=== PATIENT | female | born 1970 | race Caucasian/White ===

== ENCOUNTER 2018-10-29 09:47 | Emergency (ER) | payer OTHER, SELFPAY ==
[2018-10-29 09:48] VITALS: BP 151/53; PULSE 84; RESP 16; TEMP 36.8; O2SAT 99; BMI 36.0
--- NOTE | 2018-10-29 10:16 | ED.VIS.GEN ---
History of Present Illness Chief Complaint: Abd Pain Detail of Chief Complaint: Left upper quadrant Informant: Patient Onset: Month(s), - - Pain started approximate 1 year ago. Patient states worse past 3 days. Context: Sudden Onset Timing: Intermittent Quality: Severe cramping Location: Left upper quadrant Current Severity: Moderate Maximum Severity: Severe Worsened by: Nothing Relieved by: Nothing Associated Symptoms: Nausea Narrative: Patient is a 48-year-old woman who presents with left upper quadrant abdominal pain that started 1 year ago. She states that worse the past 3 days. She states there may be slight improvement if she has a hard passage of gas . She denies change in color, consistency or frequency of stool. She then reported she may have had slight diarrhea yesterday. She is status post cholecystectomy. She denies food intolerance. She denies cough, shortness of breath or difficulty breathing. There is no pleuritic component. There is no history of trauma. She denies dysuria, frequency, urgency or hematuria. She has no history of renal ureterolithiasis. She denies history of PE or DVT and has no risk factors. Past Medical History - Allergies and Home Meds Allergies/Adverse Reactions: Allergies venlafaxine HCl [From Effexor] Allergy (Verified 10/29/18 09:55) Other hallucinations Primary Care Physician: Franck Contreras MD [STAFF PHYSICIAN] - Prior records reviewed: Yes Surgical History: cholecystectomy Lives: Spouse/ Significant Other Smoking Status: Never smoker Alcohol: None Drugs: None - Family History Maternal Family History: Reports: No pertinent history Review of Systems General: Denies: Chills, Fever, Sweats Eyes: Denies: Visual changes - bilaterally, Diplopia ENT: Denies: Bilateral ear pain, Rhinorrhea, Sore throat Cardiovascular: Denies: Chest pain, Palpitations Respiratory: Denies: Dyspnea, Cough, Dyspnea on exertion Gastrointestinal: Reports: Abdominal pain, Nausea. Denies: Vomiting, Diarrhea, Melena, Hematochezia Genitourinary: Denies: Dysuria, Hematuria, Frequency Musculoskeletal: Denies: Back pain, Extremity Pain Skin: Denies: Rash, Wounds Neurological: Denies: Headache, Weakness, Numbness Psych: Denies: Depression Endocrine: Denies: Polyuria, Polydipsia Allergy: Denies: Uticaria Physical Exam Vital Signs/Narrative: Vital Signs Temp Pulse Resp BP Pulse Ox 10/29/18 09:48 98.3 F 84 16 151/53 H 99 General: Well nourished, Well developed, No Acute Distress Head: Normocephalic, Atraumatic Eyes: Perrl, EOMI ENT: Moist mucous membranes, No rhinorrhea Neck: Supple, Nontender Cardiovascular: Regular rate, Regular rhythm, No murmurs Respiratory: No distress, CTA bilaterally, Chest nontender Abdomen: Soft, Nontender, Nondistended, Normal bowel sounds Rectal: Deferred Back: Nontender, Normal Inspection. Negative for: CVA tenderness Extremities: Nontender, No edema, - - There is no asymmetry, swelling, discoloration, leg vein distention, palpable cords or tenderness along the distribution of the deep venous system. Skin: Normal color, No rash Neurological: Alert, Oriented x3, Cranial nerves II-XII grossly intact, Normal Strength, Normal Sensation Psychological: Normal affect, Normal Mood Diagnostic/Tx/Re-eval Laboratory Results 10/29/18 10/29/18 10:35 10:35 WBC 4.7 RBC 5.24 Hgb 15.3 H Hct 46.2 MCV 88.2 MCH 29.2 MCHC 33.1 RDW 13.3 RDW Differential 42.9 Plt Count 283 MPV 9.7 Immature Gran % (Auto) 0.200 Neut % (Auto) 60.0 Lymph % (Auto) 27.7 [place] % (Auto) 8.7 Eos % (Auto) 3.0 Baso % (Auto) 0.4 Absolute Neuts (auto) 2.8 Absolute Lymphs (auto) 1.30 Total Counted Not Reportable Sodium 137 Potassium 3.6 Chloride 104 Carbon Dioxide 29.0 Anion Gap 4 L BUN 12 Creatinine 0.72 Estim Creat Clear Calc 93.93 Est GFR (MDRD) Af Amer 112 Est GFR (MDRD) Non-Af 92 BUN/Creatinine Ratio 16.7 Glucose 91 Calcium 8.9 Total Bilirubin 0.70 AST 24 ALT 28 Alkaline Phosphatase 101 Total Protein 7.6 Albumin 3.5 Globulin 4.1 Albumin/Globulin Ratio 0.9 Lipase 77 - Medical Decision Making With left upper quadrant abdominal pain will obtain CBC, CMP and lipase to evaluate her discomfort. Since she has no abdominal findings on exam x-ray is not of value are indicated. Furthermore CT of the abdomen or pelvis is not indicated at this time. CBC, conference of metabolic panel and lipase were all normal. Since she reports onset a year ago and her workup is normal imaging was not obtained. She was informed the cause of her pain is unknown. She was informed that 50% of patients who presented to the emergency department the etiology of the pain is unknown. ED Disposition - Plan for ED Patient: Disposition: Home or Assisted Living Diagnosis: Colicky left upper quadrant pain Instructions: ED Abdominal Pain Unkn Cause Referrals: Franck Contreras MD [STAFF PHYSICIAN] - Alden Barroso MD [Primary Care Provider] - 3-5 Days if not improving
[2018-10-29 10:43] LABS: Absolute Neutrophil Count 2.8 X10^3/uL (2.0-7.7); Basophil# 0.02 X10^3/uL; Basophil% 0.4 % (0-1); Eosinophil# 0.14 X10^3/uL; Hematocrit 46.2 % (37-47); Hemoglobin 15.3 g/dl (12.0-15.0); Lymphocyte % 27.7 % (19-41); Mean Corp Hgb Conc 33.1 g/gl (32-36); Mean Corpuscular Hgb 29.2 pg (27.0-32.0); Mean Corpuscular Volume 88.2 fL (81-99); Mean Platelet Vol. 9.7 fl (6.2-12.0); Monocyte# 0.41 X10^3/uL; Monocyte% 8.7 % (0-10); Neutrophil # 2.81 X10^3/uL (2.7-7.7); POSITIVE COUNT NO; POSITIVE DIFFERENTIAL NO; POSITIVE MORPHOLOGY NO; Platelet Count 283 K/mm3 (150-450); RBC Distribution Width CV 13.3 % (11.6-14.6); RBC Distribution Width SD 42.9 fl (35.1-43.9); Red Blood Count 5.24 M/mm3 (4.2-5.4); White Blood Count 4.7 K/mm3 (4.4-11.0)
[2018-10-29 10:56] LABS: ALB/GLOB Ratio 0.9 RATIO (0.9-2.4); AST(SGOT) 24 U/L (15-37); Alanine Aminotransfer ALT/SGPT 28 U/L (13-56); Albumin, Serum 3.5 g/dL (3.2-5.0); Alkaline Phosphatase 101 U/L (45-117); Anion Gap 4 (5-15); BUN 12 mg/dL (7-18); BUN/Creat Ratio 16.7 RATIO (10-20); Calcium,Total 8.9 mg/dL (8.5-10.1); Chloride 104 mmol/L (98-107); Creatinine, Serum 0.72 mg/dL (0.55-1.02); EST Glomerular Filtration Rate 92 mL/min (>60); Est Glom Filt Rate - Afr Amer 112 mL/min (>60); Estimated Creatinine Clearance 93.93 ml/min; Globulin 4.1 g/dL (2.2-4.2); Glucose 91 mg/dL (74-106); Lipase 77 U/L (73-393); Potassium 3.6 mmol/L (3.5-5.1); Protein, Total 7.6 g/dL (6.4-8.2); Sodium Level 137 mmol/L (136-145)
[2018-10-29 11:42] VITALS: BP 134/112; PULSE 80; RESP 18; O2SAT 98
== END 2018-10-29 11:55 | disposition home or self-care (01) ==
PROVIDERS: Emergency Provider Emergency Medicine; Family Provider Internal Medicine; PCP Internal Medicine
DX: R10.84 Generalized abdominal pain (principal); R10.12 Left upper quadrant pain; Z90.49 Acquired absence of other specified parts of digestive tract
CPT/HCPCS: 80053; 83690; 85025; 99285; A4216

== ENCOUNTER 2019-06-29 21:30 | Emergency (ER) | payer OTHER, SELFPAY ==
[2019-06-29 21:31] VITALS: BP 178/103; PULSE 152; RESP 20; TEMP 36.7; O2SAT 98; BMI 39.9
--- NOTE | 2019-06-29 21:57 | EKG12_ITS ---
Test Reason : PALPS Blood Pressure : / mmHG Vent. Rate : 113 BPM Atrial Rate : 113 BPM P-R Int : 190 ms QRS Dur : 076 ms QT Int : 328 ms P-R-T Axes : 060 043 055 degrees QTc Int : 449 ms Sinus tachycardia Possible Left atrial enlargement Borderline ECG Confirmed by SCOTT SALEEM, LIZANDRO ([id number]), rewrite editor BREANN PHILLIPS ([id number]) on 07/02/2019 11:38:42 AM Referred By: BB Confirmed By:LIZANDRO CHAVEZ MD
--- NOTE | 2019-06-29 21:59 | ED.VIS.CHEST ---
History of Present Illness Chief Complaint: Palpitations Informant: Patient Onset: Hours - 1-2 Activity at onset: Rest - after I got home from work Timing: Continuous Quality: - - skipping/racing palpitations. no chest discomfort. Current Severity: Gone Maximum Severity: Moderate Worsened By: Nothing Relieved By: Nothing Associated Symptoms: Palpitations. Negative for: Nausea, Vomiting, Diaphoresis, Dyspnea, Cough, Fever, Lightheadedness Narrative: Patient states she had a very stressful day at work today. She is not suicidal, but has been having a little anxiety. She drank 2 cups of coffee this morning which is typical for her. No illicit substances. Non-smoker. No near syncope or syncope. No history of this in the past. No cardiac history. Prior Similar Symptoms: No - Past Medical History (1) HTN (hypertension) Status: Chronic Past Medical History - Allergies and Home Meds Allergies/Adverse Reactions: Allergies venlafaxine HCl [From Effexor] Allergy (Verified 06/29/19 21:35) Other hallucinations Primary Care Physician: Kevin Bland MD [STAFF PHYSICIAN] - As soon as possible (call for appt) Surgical History: cholecystectomy Lives: Spouse/ Significant Other Smoking Status: Never smoker Drugs: None - Family History Maternal Family History: Reports: No pertinent history Review of Systems General: Denies: Chills, Fever, Sweats Eyes: Denies: Visual changes - bilaterally, Diplopia ENT: Denies: Rhinorrhea, Sore throat Cardiovascular: Reports: Palpitations, Heart racing. Denies: Chest pain Respiratory: Denies: Dyspnea, Cough, Dyspnea on exertion Gastrointestinal: Denies: Abdominal pain, Nausea, Vomiting, Diarrhea, Melena, Hematochezia Genitourinary: Denies: Dysuria, Hematuria, Frequency Musculoskeletal: Denies: Back pain, Extremity Pain Skin: Denies: Rash, Wounds Neurological: Denies: Headache, Weakness, Numbness Physical Exam Vital Signs/Narrative: Vital Signs Temp Pulse Resp BP Pulse Ox 06/29/19 21:31 98.1 F 152 H 20 H 178/103 H 98 Inital Vital Signs reviewed: Yes General: Well nourished, Well developed, No Acute Distress Head: Normocephalic, Atraumatic Eyes: Perrl, EOMI ENT: Moist mucous membranes, No rhinorrhea Neck: Supple, Nontender, No JVD Cardiovascular: Regular rate, Regular rhythm, No murmurs, Tachycardia - mild Respiratory: No distress, CTA bilaterally, Chest nontender Abdomen: Soft, Nontender, Nondistended, Normal bowel sounds Back: Nontender, Normal Inspection Extremities: Nontender, No edema. Negative for: Calf Tenderness Skin: Normal color, No rash, No Trauma Neurological: Alert, Oriented x3, Cranial nerves II-XII grossly intact, Normal Strength, Normal Sensation Psychological: Normal affect, Normal Mood Diagnostic/Tx/Re-eval Laboratory Results 06/29/19 06/29/19 06/29/19 21:35 21:35 21:35 WBC 9.5 RBC 5.41 H Hgb 15.9 H Hct 47.0 MCV 86.9 MCH 29.4 MCHC 33.8 RDW Std Deviation 40.4 RDW Coeff of Michelle 12.9 Plt Count 351 MPV 10.1 Immature Gran % (Auto) 0.200 Neut % (Auto) 52.0 Lymph % (Auto) 36.5 [place] % (Auto) 9.4 Eos % (Auto) 1.5 Baso % (Auto) 0.4 Absolute Neuts (auto) 4.9 Absolute Lymphs (auto) 3.46 Nucleated RBC % 0 D-Dimer Quant (PE/DVT) 0.45 Sodium 140 Potassium 3.4 L Chloride 105 Carbon Dioxide 27.0 Anion Gap 8 BUN 18 Creatinine 0.91 Estim Creat Clear Calc 73.52 Est GFR (MDRD) Af Amer 84 Est GFR (MDRD) Non-Af 70 BUN/Creatinine Ratio 19.7 Glucose 116 H Calcium 9.7 Troponin I < 0.015 - Rhythm Strip Rhythm Strip: Sinus Tach Rate: 115 Ectopy: None - EKG Initial EKG Interpretation: No Acute Injury Pattern, Sinus Tachycardia Treatment: Beta Kyaw PO - Medical Decision Making Upon arrival, nurses put patient on the monitor and she appeared to be in A. fib with RVR. An EKG was ordered prior to my seeing her, while the tech was performing EKG she appeared to convert over to sinus rhythm and her rate slowed down considerably to around 115. She felt better as she continues to at this time. Will obtain blood work and watch her, discussed with cardiology. Blood work shows hypokalemia; the potassium is just barely low at 3.4, however it is hemolyzed, indicating that it is actually lower than this. She was given some potassium. She was watched for almost 2 hours, she never went back into atrial fibrillation and remained asymptomatic. Discussed with cardiology Dr. Bland, he agrees with replacing the potassium and placing her on low-dose beta-kyaw and having her follow-up as an outpatient. Will prescribe metoprolol 25 mg twice daily and give her an initial dose here. She is comfortable with this plan. ED Disposition - Plan for ED Patient: Disposition: Home or Assisted Living Diagnosis: Transient atrial fibrillation, Hypokalemia Instructions: Atrial Fibrillation, Hypokalemia Prescriptions: Metoprolol Tartrate 25 mg PO BID #60 tab Transmission Status: Pending to [facility]/pharmacy #[id number] Referrals: Kevin Bland MD [STAFF PHYSICIAN] - As soon as possible (call for appt)
[2019-06-29 22:07] LABS: Absolute Lymphocyte Count 3.46 X10^3/uL (0.83-4.51); Absolute Neutrophil Count 4.9 X10^3/uL (2.0-7.7); Basophil# 0.04 X10^3/uL; Basophil% 0.4 % (0-1); Eosinophil# 0.14 X10^3/uL; Eosinophils% 1.5 % (0-5); Hemoglobin 15.9 g/dL (12.0-15.0); Lymphocyte # 3.46 X10^3/ul (4.0); Lymphocyte % 36.5 % (19-41); Mean Corp Hgb Conc 33.8 g/dL (32-36); Mean Corpuscular Hgb 29.4 pg (27.0-32.0); Mean Corpuscular Volume 86.9 fL (81-99); Mean Platelet Vol. 10.1 fl (6.2-12.0); Monocyte# 0.89 X10^3/uL; Monocyte% 9.4 % (0-10); NRBC Flagged by Analyzer 0 % (0-5); Neutrophil # 4.93 X10^3/uL (2.7-7.7); Platelet Count 351 K/mm3 (150-450); RBC Distribution Width CV 12.9 % (11.6-14.6); RBC Distribution Width SD 40.4 fl (35.1-43.9); Red Blood Count 5.41 M/mm3 (4.2-5.4); White Blood Count 9.5 K/mm3 (4.4-11.0)
[2019-06-29 22:21] LABS: Anion Gap 8 (5-15); BUN 18 mg/dL (7-18); BUN/Creat Ratio 19.7 RATIO (10-20); Calcium,Total 9.7 mg/dL (8.5-10.1); Chloride 105 mmol/L (98-107); Creatinine, Serum 0.91 mg/dL (0.55-1.02); EST Glomerular Filtration Rate 70 mL/min (>60); Est Glom Filt Rate - Afr Amer 84 mL/min (>60); Estimated Creatinine Clearance 73.52 ml/min; Glucose 116 mg/dL (74-106); Potassium 3.4 mmol/L (3.5-5.1); Sodium Level 140 mmol/L (136-145)
[2019-06-29 22:52] LABS: D-Dimer Quantitative (DVT/PE) 0.45 FEU/ug/m (0.27-0.49)
[2019-06-29 23:13] VITALS: BP 166/86; PULSE 135; RESP 20; O2SAT 99
[2019-06-29] MEDS: Metoprolol Tartrate 25 MG Tablet PO (23:13)
[2019-06-29 23:32] VITALS: PULSE 120; RESP 18
== END 2019-06-29 23:34 | disposition home or self-care (01) ==
PROVIDERS: Emergency Provider Emergency Medicine; Family Provider Internal Medicine; PCP Internal Medicine
DX: I48.91 Unspecified atrial fibrillation (principal); E87.6 Hypokalemia; F41.9 Anxiety disorder, unspecified; I10 Essential (primary) hypertension; Z90.49 Acquired absence of other specified parts of digestive tract
CPT/HCPCS: 80048; 84484; 85025; 85379; 93005; 99285

== ENCOUNTER 2019-07-06 21:24 | Emergency (ER) | payer OTHER, SELFPAY ==
[2019-07-06 21:25] VITALS: BP 149/85; PULSE 93; RESP 19; TEMP 36.6; O2SAT 99; BMI 40.4
--- NOTE | 2019-07-06 21:41 | EKG12_ITS ---
Test Reason : HTN Blood Pressure : / mmHG Vent. Rate : 087 BPM Atrial Rate : 087 BPM P-R Int : 210 ms QRS Dur : 086 ms QT Int : 404 ms P-R-T Axes : 060 037 054 degrees QTc Int : 486 ms Sinus rhythm with 1st degree A-V block Prolonged QT Abnormal ECG Confirmed by SCOTT SALEEM, LIZANDRO ([id number]), slot editor JACINTA GORDON ([id number]) on 07/09/2019 10:04:44 AM Referred By: SHAWN Confirmed By:LIZANDRO CHAVEZ MD
--- NOTE | 2019-07-06 22:09 | RAD_ITS ---
STUDY: X-RAY CHEST REASON FOR EXAM: Female, 49 years old. Patient doesn't feel well TECHNIQUE: PA and lateral views of the chest. COMPARISON: None. FINDINGS: threat monitoring analyst leads are present. The lungs are clear and expanded. There is no demonstrated pleural abnormality. Normal size heart. Normal mediastinum and roberta. Normal visualized pulmonary arteries. Normal visualized aortic arch and descending thoracic aorta. There are diffuse degenerative changes of the visualized thoracic spine. Normal visualized ribs, clavicles, and shoulders. There is no demonstrated abnormality of the visualized soft tissue structures of the upper abdomen. RAD/Chest PA and Lateral IMPRESSION: Degenerative changes of the thoracic spine. No acute cardiopulmonary disease process is seen. Electronically Signed: Negro Valle MD at 22:39 EST , Service support ,
[2019-07-06 22:20] LABS: Mucous, Urine 0 SEEN /hpf (<or=2+); Red Blood Cells-Urine 0 SEEN /hpf (0-5)
[2019-07-06 22:22] LABS: Color, Urine Yellow (Yellow); Glucose, Dipstick Normal (Normal); Ketone-Dipstick Negative (Negative); Leukocyte Esterase-Dipstick 25 /ul (Negative); Nitrite-Dipstick Negative (Negative); Occult Blood-Urine Negative /ul (Negative); Protein-Dipstick Negative (Negative); Urine Bilirubin Dipstick Negative (Negative); Urine Clarity Clear (Clear); Urine Urobilinogen Normal (Normal); Urine pH 6.5 (5.0 - 8.0)
[2019-07-06 22:24] LABS: Anion Gap 7 (5-15); BUN 17 mg/dL (7-18); BUN/Creat Ratio 22.6 RATIO (10-20); Calcium,Total 9.2 mg/dL (8.5-10.1); Chloride 103 mmol/L (98-107); Creatinine, Serum 0.75 mg/dL (0.55-1.02); EST Glomerular Filtration Rate 87 mL/min (>60); Est Glom Filt Rate - Afr Amer 106 mL/min (>60); Estimated Creatinine Clearance 89.21 ml/min; Glucose 103 mg/dL (74-106); Potassium 3.1 mmol/L (3.5-5.1); Sodium Level 140 mmol/L (136-145)
--- NOTE | 2019-07-06 22:24 | ED.VISSUMM ---
- ER Visit Summary Date of Service: 07/06/19 Chief Complaint: Lightheadedness History of Present Illness: The patient is a 49 F who presents with lightheadedness that began today while she was driving home from work. Patient states she feels lightheaded and dizzy. Patient also states she was having some palpitations. Patient states these palpitations were different from the paroxysmal atrial fibrillation that she had last week. Patient denies any chest pain. Patient admits to some diarrhea but denies any nausea or vomiting. Patient denies any shortness of breath or cough. Patient denies any fevers or chills. Physical Examination: Vital signs are stable. Patient is afebrile. Patient is in no acute distress. Oral mucosa is pink and moist. Neck is supple. Trachea is midline. There is no JVD. Heart was regular rate and rhythm. Lungs are clear and equal bilaterally. Abdomen is soft. Bowel sounds are normal. There is no tenderness. Cranial nerves II through XII are intact. There are no focal motor or sensory deficits noted. Test Results: EKG showed a normal sinus rhythm with a first-degree AV block with a rate of 87. There are no acute ST or T wave changes. QTc was slightly prolonged at 486. CBC was within normal limits. Basic metabolic profile showed a mild hypokalemia of 3.1. Urinalysis does not show any evidence of urinary tract infection. Troponin was normal. PA and lateral chest x-ray was obtained. There is no acute process noted. This was interpreted by the radiologist and myself. Emergency Department Course and Treatment: Orthostatic vital signs were obtained and were negative. Patient does not want to take any oral potassium. Patient was instructed to follow-up with her primary care physician in 2 to 3 days for further evaluation. Patient understood and was agreeable with the plan. All questions were answered. Disposition: Discharge home Impression: Near syncope This note was generated with [employer] dictation software. It may contain incorrect words, spelling, and punctuation that were not noted in review of the chart prior to signing ED Disposition - Plan for ED Patient: Disposition: Home or Assisted Living Diagnosis: Near syncope Instructions: NEAR SYNCOPE, Unknown Referrals: Alden Barroso MD [Primary Care Provider] - 2 Days
[2019-07-06 22:30] VITALS: BP 167/70; PULSE 97
[2019-07-06 22:33] LABS: Bacteria RARE /hpf (None Seen); Squamous Epithelial Cells - UA 0-5 SEEN /hpf (5-10); White Blood Cells 0-5 SEEN /hpf (0-5)
[2019-07-06 22:37] LABS: Absolute Lymphocyte Count 2.58 X10^3/uL (0.83-4.51); Absolute Neutrophil Count 5.7 X10^3/uL (2.0-7.7); Basophil# 0.03 X10^3/uL; Basophil% 0.3 % (0-1); Eosinophils% 2.2 % (0-5); Hematocrit 43.3 % (37-47); Hemoglobin 14.8 g/dL (12.0-15.0); Lymphocyte # 2.58 X10^3/ul (4.0); Mean Corp Hgb Conc 34.2 g/dL (32-36); Mean Corpuscular Hgb 29.6 pg (27.0-32.0); Mean Corpuscular Volume 86.6 fL (81-99); Mean Platelet Vol. 10.4 fl (6.2-12.0); Monocyte# 0.68 X10^3/uL; Monocyte% 7.4 % (0-10); NRBC Flagged by Analyzer 0 % (0-5); Neutrophil % 61.8 % (47-70); Platelet Count 332 K/mm3 (150-450); RBC Distribution Width CV 12.6 % (11.6-14.6); RBC Distribution Width SD 39.2 fl (35.1-43.9); White Blood Count 9.2 K/mm3 (4.4-11.0)
[2019-07-06 22:38] VITALS: BP 152/84; PULSE 102
[2019-07-06 22:40] VITALS: BP 154/92; PULSE 109
[2019-07-06 23:21] VITALS: BP 156/74; PULSE 82; RESP 16; O2SAT 97
== END 2019-07-06 23:22 | disposition home or self-care (01) ==
PROVIDERS: Emergency Provider Emergency Medicine; Family Provider Internal Medicine; PCP Internal Medicine
DX: R55 Syncope and collapse (principal); I48.0 Paroxysmal atrial fibrillation; E66.9 Obesity, unspecified; R19.7 Diarrhea, unspecified; R53.1 Weakness
CPT/HCPCS: 36415; 71046; 80048; 81001; 84484; 85025; 93005; 96360; 99285; A4216

== ENCOUNTER 2023-11-22 15:25 | Emergency (ER) | payer OTHER, SELFPAY ==
[2023-11-22] VITALS (7 sets, daily range): BP systolic 141–167; BP diastolic 70–95; PULSE 78–87; RESP 16–18; TEMP 36.4–37.1; O2SAT 98–100; BMI 46.3
--- NOTE | 2023-11-22 16:12 | ED.VIS.GI ---
HPI HPI - GI History of Present Illness Chief Complaint: Abd Pain Informant: patient Abdominal Pain/Flank Pain Onset: Yesterday Context: Sudden Onset Timing: Intermittent Quality: Stabbing Location: Epigastric and LUQ Worsened by: Food Relieved by: Nothing Nausea/Vomiting/Emesis GI Symptom: Negative for Nausea or Vomiting Diarrhea/Melena/Hematochezia GI Symptom: Positive for Diarrhea; Negative for Melena or Hematochezia Onset: Weeks (3) Stool Quality: Positive for Loose and Watery Associated Symptoms Associated Symptoms: Negative for Dysuria, Frequency or Hematuria Narrative Narrative: Patient presents with abdominal pain that has been getting worse since yesterday. Patient states she has had diarrhea for the past 3 weeks. Patient describes it as loose. Patient denies any blood in her stools. Patient denies any melena. Patient denies any nausea or vomiting. Patient states her abdominal pain is intermittent. Patient describes it as stabbing. Patient states it is over the left upper quadrant and epigastric area. Patient states it is worse when she eats. Patient states nothing makes it better. PFSH PFS Medical History Chronic neck and back pain HTN (hypertension) Home Medications potassium chloride 10 mEq capsule,extended release 10 meq PO DAILY 10/29/18 [History Last Taken Unknown] triamterene 37.5 mg-hydrochlorothiazide 25 mg tablet 1 tab PO DAILY 10/29/18 [History Last Taken Unknown] atenolol 25 mg tablet 25 mg PO 06/09/20 [History Last Taken Unknown] cholecalciferol (vitamin D3) 10 mcg (400 unit) capsule 10 mcg PO DAILY 06/09/20 [History Last Taken Unknown] duloxetine 30 mg capsule,delayed release mg PO 06/09/20 [History Last Taken Unknown] levonorgestrel 21 mcg/24 hours (8 yrs) 52 mg intrauterine device (Mirena) 1 device intrauterine ONCE 06/09/20 [History Last Taken Unknown] multivitamin 1 cap PO DAILY 06/09/20 [History Last Taken Unknown] Allergy/AdvReac Type Severity Reaction Status Date / Time venlafaxine HCl Allergy Other Verified 11/22/23 15:27 [From Effexor] Family History Other Diabetes Heart disease Kidney disease Surgical History History of cholecystectomy History of tonsillectomy Social History Smoking Status: Never smoker alcohol intake: never ROS ROS ED Constitutional Constitutional ED: Denies chills or fever(s) Eyes Eyes: Denies blurry vision or change in vision ENT ENT ED: Reports rhinorrhea; Denies sore throat Cardiovascular Cardiovascular: Denies chest pain or palpitations Respiratory/Chest Respiratory/Chest: Reports cough; Denies dyspnea Gastrointestinal Gastrointestinal: Reports abdominal pain and diarrhea; Denies nausea or vomiting Genitourinary Genitourinary ED: Denies dysuria or hematuria Musculoskeletal Musculoskeletal: Reports back pain; Denies neck pain Integumentary Denies abscess or rash Neurologic Neurologic: Denies headache(s) or weakness Allergic/Immunologic Allergic/Immunologic ED: Denies mouth swelling or urticaria EXAM Physical Exam Const Vital Signs: 11/22/23 15:26 11/22/23 15:27 11/22/23 16:27 Temperature 97.6 F L 97.6 F L 97.6 F L Temperature Source Temporal Temporal Temporal Pulse Rate 83 83 83 Respiratory Rate 18 18 16 Blood Pressure 149/95 H 149/95 H 149/95 H Blood Pressure Mean 113 113 113 Pulse Ox 100 100 98 Oxygen Delivery Method Room Air Room Air Room Air 11/22/23 17:24 11/22/23 18:00 11/22/23 19:00 Temperature 98.7 F 98.7 F 98.4 F Temperature Source Oral Oral Temporal Pulse Rate 78 87 87 Respiratory Rate 16 18 16 Blood Pressure 167/78 H 146/73 H 159/70 H Blood Pressure Mean 107 97 99 Pulse Ox 99 98 98 Oxygen Delivery Method Room Air Room Air Room Air Positive well nourished, well developed and obese General Appearance ED: well developed and NAD; Negative for pallor Nutritional Appearance: obese HEENT Reports moist mucous membranes normocephalic Neck supple and no JVD Resp normal respiratory effort and clear to auscultation bilaterally Cardio regular rate and regular rhythm GI non-distended Palpation: soft and tender epigastric and LUQ; Negative for guarding or rebound tenderness present Neuro CN's II-XII intact bilaterally, moves all extremities and no sensory deficits noted Sensorium / Orientation: alert Motor Exam: strength 5/5 throughout Psych mental status grossly normal and thought process normal Skin no wounds General Skin Exam: Negative for jaundice or pallor MDM MDM MDM Narrative Medical decision making narrative: Differential diagnosis includes gastroenteritis, bowel obstruction, perforation, pancreatitis, electrolyte abnormality, and dehydration. CBC will be obtained to assess for leukocytosis and anemia. Comprehensive metabolic profile will be obtained to assess for hepatic function, renal function, and electrolyte abnormality. Lipase will be obtained to assess for pancreatitis. Urinalysis will be obtained to assess for urinary tract infection. Stool specimen will be obtained for C. difficile, enteric pathogens, and fecal leukocytes. Serum hCG will be obtained to assess for Lab Data Attestation: I reviewed the patient's lab results. Lab results narrative: CBC was reviewed and was within normal limits. Comprehensive metabolic profile was reviewed and was essentially within normal limits. Lipase was reviewed and was normal at 33. Urinalysis was reviewed. Leukocyte esterase was 25 with 1+ bacteria. There is 0-5 white blood cells noted. Labs: Laboratory Results - last 24 hr 11/22/23 16:40 WBC 7.9 RBC 4.96 Hgb 14.3 Hct 43.7 MCV 88.1 MCH 28.8 MCHC 32.7 RDW Std Deviation 41.9 RDW Coeff of Michelle 12.9 Plt Count 324 MPV 9.8 Immature Gran % (Auto) 0.300 Neut % (Auto) 57.0 Lymph % (Auto) 30.3 [place] % (Auto) 8.9 Eos % (Auto) 2.9 Baso % (Auto) 0.6 Absolute Neuts (auto) 4.5 Absolute Lymphs (auto) 2.39 Nucleated RBC % 0 Sodium 139 Potassium 3.7 Chloride 108 H Carbon Dioxide 28.0 Anion Gap 3 L BUN 15 Creatinine 0.96 Estim Creat Clear Calc 94.95 Est GFR (MDRD) Af Amer 78 Est GFR (MDRD) Non-Af 65 BUN/Creatinine Ratio 15.6 Glucose 90 Calcium 9.4 Total Bilirubin 0.50 AST 25 ALT 32 Alkaline Phosphatase 69 Total Protein 8.0 Albumin 3.7 Globulin 4.3 H Albumin/Globulin Ratio 0.9 Lipase 33 Serum , Qual NEGATIVE Urine Color Yellow Urine Clarity Clear Urine pH 6.0 Ur Specific [place] 1.015 Urine Protein Negative Urine Glucose (UA) Normal Urine Ketones Negative Urine Occult Blood 50 H Urine Nitrite Negative Urine Bilirubin Negative Urine Urobilinogen Normal Ur Leukocyte Esterase 25 H Urine RBC 0-5 SEEN Urine WBC 0-5 SEEN Ur Squamous Epith Cells 0-5 SEEN Urine Bacteria 1+ Urine Mucus 0 SEEN Radiography Diagnostic Testing: Clinical Impression(s) from Imaging Studies Abdomen/Pelvis CT 11/22/23 16:30 IMPRESSION: Mild nonspecific ileus in the left upper to mid abdomen.. No evidence for small bowel obstruction or other acute abnormality Findings as above Electronically Signed: Ha Lemons MD at 18:38 EDT , CT scan of the abdomen pelvis was obtained. There is a mild nonspecific ileus in the left upper abdomen. There is no evidence of bowel obstruction. There is no free air or free fluid noted. There is no other acute abnormality noted. This was interpreted by the radiologist and was also independently reviewed by myself. Treatment and Re-Evaluation :: Patient was given IV fluids. Patient was unable to produce stool specimen here. Patient was advised of her findings. Patient was instructed to start with a bland diet and advance as tolerated. Patient was instructed to follow-up with her primary care physician in 5 to 7 days. Patient understood and was agreeable with the plan. All questions were answered. Discharge Plan Triage Chief Complaint: Abd Pain ED Provider: Raj Schroeder Dx/Rx/DC Orders Clinical Impression: Diarrhea, Abdominal pain Instructions: ED Abdominal Pain Unkn Cause Fem, ED Diarrhea, Unknown Cause Prescriptions: No Action atenolol 25 mg tablet 25 mg PO Patient Comments: TAKE 1/2 TABLET BY MOUTH TWICE A DAY duloxetine 30 mg capsule,delayed release(DR/EC) PO Patient Comments: TAKE 1 CAPSULE BY MOUTH EVERY DAY multivitamin capsule 1 cap PO DAILY cholecalciferol (vitamin D3) 10 mcg (400 unit) capsule 10 mcg PO DAILY levonorgestrel 20 mcg/24 hours (5 yrs) 52 mg intrauterine device 20 mcg/24 hours (5 yrs) 52 mg intrauterine device 1 device intrauterine ONCE Rx Instructions: as a single dose potassium chloride 10 MEQ capsule, extended release 10 meq PO DAILY triamterene-hydrochlorothiazid 1 EACH tablet 1 tab PO DAILY Patient Comments: TAKE 1 TABLET BY MOUTH EVERY DAY Primary Care Provider: Ellyn Christina NP Referrals: Alden Barroso MD [Med Staff - [facility]] - 5-7 Days Ellyn Christina NP, [employer] [Primary Care Provider] - 5-7 Days Disposition Disposition: Home, Self Care
[2023-11-22] MEDS: 0.9% Normal Saline (1000mL) 1,000 ML 1000 ML IV (16:30)
--- NOTE | 2023-11-22 16:30 | CT_ITS ---
STUDY: CT ABDOMEN AND PELVIS WITH CONTRAST REASON FOR EXAM: Female, 53 years old. Abdominal pain -- IV PO Contrast RADIATION DOSAGE (If Supplied By Facility): CTDIvol = ( 18.57 ) mGy, DLP = ( 1388.99 ) mGycm TECHNIQUE: Transaxial images were obtained from the dome of the diaphragm to the symphysis pubis without oral contrast. Oral and amp; IV Gastrografin and amp; 100mL Isovue-370 was administered. Sagittal and coronal images were reconstructed. Individualized dose optimization techniques were used for this CT. COMPARISON: None. FINDINGS: The visualized lung bases are unremarkable. The visualized portions of the heart are within normal limits. Nonspecific fatty infiltrated liver without mass or bile duct dilatation. Gallbladder not visualized consistent with prior cholecystectomy. Normal spleen. Normal pancreas. Normal bilateral adrenal glands. Normal right kidney. Normal left kidney. Normal visualized stomach. There are a few mildly distended proximal small bowel loops without transition point most consistent with nonspecific focal ileus. Normal colon. No evidence for acute appendicitis Normal abdominal aorta. Normal inferior vena cava. Normal retroperitoneum. Normal urinary bladder. Uterus is slightly deviated towards the right. There is an IUD noted in satisfactory position . Tiny right ovarian cyst is noted Normal abdominal wall. Lumbar spine demonstrates mild spondylosis. CT/Abdomen/Pelvis WITH Contrast IMPRESSION: Mild nonspecific ileus in the left upper to mid abdomen.. No evidence for small bowel obstruction or other acute abnormality Findings as above Electronically Signed: Ha Lemons MD at 18:38 EDT ,
[2023-11-22 16:55] LABS: Absolute Lymphocyte Count 2.39 X10^3/uL (0.83-4.51); Absolute Neutrophil Count 4.5 X10^3/uL (2.0-7.7); Basophil# 0.05 X10^3/uL; Basophil% 0.6 % (0-1); Color, Urine Yellow (Yellow); Eosinophil# 0.23 X10^3/uL; Eosinophils% 2.9 % (0-5); Glucose, Dipstick Normal (Normal); Hematocrit 43.7 % (37-47); Hemoglobin 14.3 g/dL (12.0-15.0); Ketone-Dipstick Negative (Negative); Leukocyte Esterase-Dipstick 25 /ul (Negative); Lymphocyte # 2.39 X10^3/ul (0.83-4.51); Lymphocyte % 30.3 % (19-41); Mean Corp Hgb Conc 32.7 g/dL (32-36); Mean Corpuscular Hgb 28.8 pg (27.0-32.0); Mean Corpuscular Volume 88.1 fL (81-99); Mean Platelet Vol. 9.8 fl (6.2-12.0); Monocyte% 8.9 % (0-10); Mucous, Urine 0 SEEN /hpf (<or=2+); NRBC Flagged by Analyzer 0 % (0-5); Nitrite-Dipstick Negative (Negative); Occult Blood-Urine 50 /ul (Negative); Platelet Count 324 K/mm3 (150-450); Protein-Dipstick Negative (Negative); RBC Distribution Width CV 12.9 % (11.6-14.6); RBC Distribution Width SD 41.9 fl (35.1-43.9); Red Blood Count 4.96 M/mm3 (4.2-5.4); Specific Gravity, Urine 1.015 (1.002-1.030); Urine Bilirubin Dipstick Negative (Negative); Urine Clarity Clear (Clear); Urine Urobilinogen Normal (Normal); White Blood Count 7.9 K/mm3 (4.4-11.0)
[2023-11-22 17:07] LABS: Internal QC Validated? YES +Cl - CLEAR BKGD; Pregnancy, Serum, hCG Quali. NEGATIVE Negative
[2023-11-22 17:12] LABS: ALB/GLOB Ratio 0.9 RATIO (0.9-2.4); AST(SGOT) 25 U/L (15-37); Alanine Aminotransfer ALT/SGPT 32 U/L (13-56); Albumin, Serum 3.7 g/dL (3.2-5.0); Alkaline Phosphatase 69 U/L (45-117); Anion Gap 3 (5-15); BUN 15 mg/dL (7-18); BUN/Creat Ratio 15.6 RATIO (10-20); Calcium,Total 9.4 mg/dL (8.5-10.1); Chloride 108 mmol/L (98-107); Creatinine, Serum 0.96 mg/dL (0.55-1.02); EST Glomerular Filtration Rate 65 mL/min (>60); Est Glom Filt Rate - Afr Amer 78 mL/min (>60); Estimated Creatinine Clearance 94.95 ml/min; Globulin 4.3 g/dL (2.2-4.2); Glucose 90 mg/dL (74-106); Lipase 33 U/L (13-75); Potassium 3.7 mmol/L (3.5-5.1); Sodium Level 139 mmol/L (136-145)
[2023-11-22 17:20] LABS: Bacteria 1+ /hpf (None Seen); Squamous Epithelial Cells - UA 0-5 SEEN /hpf (5-10); White Blood Cells 0-5 SEEN /hpf (0-5)
[2023-11-22 17:21] LABS: Red Blood Cells-Urine 0-5 SEEN /hpf (0-5)
== END 2023-11-22 19:44 | disposition home or self-care (01) ==
PROVIDERS: Emergency Provider Emergency Medicine; PCP Nurse Practitioner Family; Visit Provider Emergency Medicine
DX: R10.12 Left upper quadrant pain (principal); R19.7 Diarrhea, unspecified; R10.13 Epigastric pain; I10 Essential (primary) hypertension; Z79.899 Other long term (current) drug therapy; Z90.49 Acquired absence of other specified parts of digestive tract
CPT/HCPCS: 74177; 80053; 81001; 83690; 84703; 85025; 96360; 99283; J7030; Q9967; A4216